=== PATIENT | male | born 1930 | race Caucasian/White ===

== ENCOUNTER 2017-12-31 13:16 | Emergency (ER) | payer OTHER ==
[~2017-12-31] VITALS: Ht 182.9 cm; Wt 55.8 kg
[2017-12-31 15:15] VITALS: BP 127/58
== END 2017-12-31 15:15 | disposition home or self-care (01) ==
LOC: ER 13:16
DX: S00.83XA Contusion of other part of head, initial encounter (principal); S50.312A Abrasion of left elbow, initial encounter; S50.811A Abrasion of right forearm, initial encounter; S80.212A Abrasion, left knee, initial encounter; Z88.5 Allergy status to narcotic agent; Z88.0 Allergy status to penicillin; W01.198A Fall on same level from slipping, tripping and stumbling with subsequent striking against other object, initial encounter; Y92.89 Other specified places as the place of occurrence of the external cause; Y93.89 Activity, other specified; Y99.8 Other external cause status